=== PATIENT | female | born 1960 | race Two or more races ===

== ENCOUNTER 2019-06-22 17:14 | Emergency (ER) | payer OTHER ==
[~2019-06-22] VITALS: Ht 157.5 cm; Wt 86.2 kg
[2019-06-22 17:54] LABS: Basophils # (auto) 0.1 uL; Basophils % (auto) 1.1 % (0.0-2.0); Eosinophils # (auto) 0.2 uL; Eosinophils % (auto) 2.8 % (0.0-7.0); Hematocrit 40.5 % (36.0-46.0); Hemoglobin 13.9 g/dL (12.2-16.2); Lymphocytes # (auto) 1.9 uL; Lymphocytes % (auto) 27.1 % (10.0-50.0); Mean Corpuscular Hemoglobin 31.8 pg (28.0-32.0); Mean Corpuscular Hgb Conc. 34.4 g/dL (32.0-36.0); Mean Corpuscular Volume 92.5 fL (80.0-100.0); Monocytes # (auto) 0.3 uL; Monocytes % (auto) 4.6 % (0.0-12.0); Neutrophils # (auto) 4.5 uL; Neutrophils % (auto) 64.4 % (37.0-80.0); Nucleated Red Blood Cells % 0.1 %; Platelet Count (auto) 218 10^3/uL (140-450); Red Blood Cells 4.37 10^6/uL (4.0-5.20); Red Cell Distribution Width 13.2 % (11.8-14.3); White Blood Cell 7.1 10^3/uL (4.4-10.8)
[2019-06-22 18:09] LABS: Alanine Aminotransferase 38 U/L (13-56); Albumin 3.9 g/dL (3.4-5.0); Anion Gap 5 (5-15); Aspartate Aminotransferase 27 U/L (15-37); BUN/Creatinine Ratio 24.4; Blood Urea Nitrogen 19 mg/dL (7-18); Calcium 8.4 mg/dL (8.5-10.1); Carbon Dioxide 26 mmol/L (21-32); Chloride 107 mmol/L (98-107); GFR African American 98 mL/min; GFR Non-African American 81 mL/min; Glucose 112 mg/dL (74-106); Potassium 3.5 mmol/L (3.5-5.1); Sodium 138 mmol/L (136-145)
[2019-06-22 18:14] LABS: Alkaline Phosphatase 142 U/L (45-117); Bilirubin, Total 0.7 mg/dL (0.2-1.0)
[2019-06-22] MEDS ORDERED: BACLOFEN 10 MG TAB PO ONE (20:00)
[2019-06-22] MEDS ORDERED: HYDROcodone-ACET 10/325MG TAB PO ONE (20:00)
[2019-06-22] MEDS ORDERED: DexAMETHasone SOD PHOS 10MG/1ML VIAL INJ IM ONE (20:00)
[2019-06-22 20:26] VITALS: BP 148/85
== END 2019-06-22 20:46 | disposition home or self-care (01) ==
LOC: ER 17:14
DX: M62.830 Muscle spasm of back (principal); M62.838 Other muscle spasm; K59.00 Constipation, unspecified; R07.89 Other chest pain
CPT/HCPCS: 36415; 71046; 72100; 80053; 84484; 85025; 93005; 96372; 99284; J1100